=== PATIENT | female | born 1975 | race Caucasian/White ===

== ENCOUNTER 2022-12-03 02:12 | Emergency (ER) | payer OTHER ==
[~2022-12-03] VITALS: Ht 160 cm; Wt 90.0 kg
--- NOTE | 2022-12-04 21:43 | EKG ---
[facility] [address] [facility] [address] [place], [place] [address] Signed Unusual P axis, possible ectopic atrial tachycardia Low voltage QRS Septal infarct , age undetermined Abnormal ECG No previous ECGs available Confirmed by KAM MCCALL MD ([id number]) on 12/04/2022 9:43:08 PM Electronically Signed By: KAM MCCALL MD 12/04/222142 PATIENT NAME: MILLER DAVIS Electrocardiogram DATE OF : 73 PHYSICIAN: KAM MCCALL MD REPORT #: [id number] REPORT IS CONFIDENTIAL AND NOT TO BE RELEASED WITHOUT AUTHORIZATION
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
== END 2022-12-03 06:00 | disposition short-term general hospital (02) ==
LOC: ED 02:12 → EDBD 02:13 → ED 06:00
DX: S27.1XXA Traumatic hemothorax, initial encounter (principal); S22.5XXA Flail chest, initial encounter for closed fracture; S27.0XXA Traumatic pneumothorax, initial encounter; S22.069A Unspecified fracture of T7-T8 vertebra, initial encounter for closed fracture; S32.2XXA Fracture of coccyx, initial encounter for closed fracture; S32.82XA Multiple fractures of pelvis without disruption of pelvic ring, initial encounter for closed fracture; V49.9XXA Car occupant (driver) (passenger) injured in unspecified traffic accident, initial encounter; Z20.822 Contact with and (suspected) exposure to COVID-19; Y92.410 Unspecified street and highway as the place of occurrence of the external cause; Z23 Encounter for immunization
CPT/HCPCS: 31500; 32551; 36415; 36430; 36556; 36600; 70450; 71045; 71260; 72125; 74177; 80053; 82803; 83605; 84702; 85025; 86850; 86900; 86901; 86922; 87502; 90471; 90715; 93005; 93010; 94002; 94799; 99285-25; C9803; G0480; J0171; J0461; J2250; J7070; P9016; U0003

== ENCOUNTER 2023-01-20 14:32 | Inpatient (IN) | payer OTHER ==
[~2023-01-20] VITALS: Ht 160 cm; Wt 74.5 kg
--- NOTE | 2023-01-20 17:57 | NUR ---
CONTACTED ER REGARDING PCN ALLERGY AND ZOSYN ORDER. WISHES PATIENT TO HAVE ZOSYN ANYWAY.
[2023-01-20 18:00] VITALS: BP 111/67
--- NOTE | 2023-01-20 19:30 | NUR ---
REPORT RECEIVED FROM BELLE Green RN. PT LAYING IN BED AND RESPONDS WHEN ADDRESSED. PT REQUESTING BROTH. ELIZA MIGUEL BRINGS PT BROTH. PT DENIES ANY OTHER NEEDS AT THIS TIME. CALL LIGHT IN REACH.
--- NOTE | 2023-01-20 19:45 | NUR ---
CALL LIGHT ANSWERED. PATIENT WANTING PILLOW ON HER LEFT SIDE. ITS DONE. CHICKEN BROTH PROVIDED PER PATIENT.
[2023-01-20 20:28] VITALS: BP 109/54
--- NOTE | 2023-01-20 20:39 | NUR ---
IN TO ADMINISTER MEDICATIONS, SEE MAR. PT REPORTING PAIN 6/10 IN BUTTOCKS. PRN PAIN MEDICATION ADMINISTERED, SEE MAR. VITALS AND I&Os COMPLETE. ASSESSMENT COMPLETE. LUNG SOUNDS CLEAR. BOWEL TONES ACTIVE. RIGHT PEDAL PULSE FAINT. LEFT PEDAL PULSE STRONG. COOL RAG PROVIDED FOR PT COMFORT. PT DENIES ANY OTHER NEEDS AT THIS TIME. CALL LIGHT IN REACH.
--- NOTE | 2023-01-20 20:52 | NUR ---
ENTERED VS FROM ADMISSION.
--- NOTE | 2023-01-20 21:50 | NUR ---
pt repostioned. tolerated well. bedside fan provided. no other needs. call light in reach.
--- NOTE | 2023-01-20 22:35 | NUR ---
IN TO ADMINISTER MEDICATIONS, SEE MAR. PT TAKES PO MEDICATIONS WITH NO ISSUES. PT REPORTING PAIN 3/10 IN BUTTOCKS. PT DENIES ANY OTHER NEEDS AT THIS TIME. CALL LIGHT IN REACH.
--- NOTE | 2023-01-20 23:58 | NUR ---
IN WITH LAUREN CRUZ AND ELIZA MIGUEL TO PLACE DRESSING. PIN CARE PROVIDED. WOUND DRAINAGE SANGUINOUS, PURULENT, AND ODOR NOTED. WOUND ON R AND L BUTTOCKS CLEANSED WITH WOUND CLEANSER. PAT DRY. GAUZE SOAKED IN NS APPLIED TO WOUNDS. COVERED WITH ABD PAD. SECURED WITH PAPER TAPE. PT TOLERATED DRESSING WELL. DRESSING TO L HIP REMOVED AND NEW DRESSING PLACED. ALLEVYN PLACED TO L HIP. PILLOW PLACED UNDER PTs RIGHT BUTTOCK PER PT REQUEST. WATER REMOVED FROM ROOM PT IS NOW NPO. PT DENIES ANY OTHER NEEDS AT THIS TIME. CALL LIGHT IN REACH.
[2023-01-21] VITALS (8 sets, daily range): BP systolic 93–107; BP diastolic 55–62
--- NOTE | 2023-01-21 01:58 | NUR ---
IN TO ROUND ON PT. PT RESTING IN BED WITH EYES CLOSED. RR EVEN AND UNLABORED. VITALS AND I&Os COMPLETE.
--- NOTE | 2023-01-21 05:48 | NUR ---
IN WITH LAUREN CRUZ AND ELIZA MIGUEL TO ASSIST PT WITH PRE-SURGICAL WIPEDOWN. WIPE DOWN COMPLETE. NEW GOWN AND SHEETS PROVIDED. NEW SCDs IN PLACE. VITALS COMPLETE. PT REPORTING PAIN 4/10 IN BUTTOCKS. SCHEDULED TYLENOL ADMINISTERED WITH SIP OF WATER, SEE MAR. SMEAR BM NOTED, SHAYNA CARE PROVIDED. NEW PUREWICK PLACED. ASSESSMENT COMPLETE. LUNG SOUNDS CLEAR. BOWEL TONES ACTIVE. DRESSINGS TO BUTTOCKS IN PLACE. MEDICATIONS ADMINISTERED, SEE MAR. PT DENIES ANY OTHER NEEDS AT THIS TIME. CALL LIGHT IN REACH.
--- NOTE | 2023-01-21 07:20 | NUR ---
RECIEVED SHIFT REPORT. PT AWAKE IN BED, DENIES FURTHER NEEDS. CALL LIGHT IN REACH. ASSESSED PIN SITES WITH NOC LAUREN, ROSSY.
--- NOTE | 2023-01-21 10:00 | NUR ---
MORNING ASSESSMENT COMPLETE. PAIN 4/10, TOLERABLE AT THIS TIME. PT STATES CONCERN WITH "SCABS" PRESENT NEAR EXT. FIXATOR SITES THAT WERE NOT NOTICED YESTERDAY. THIS RN EXPLAINED TO PT HER CONCERNS WILL BE MENTIONED TO SURGEON AND PASSED ONTO SURGERY NURSE. 4X4 WITH NS PLACED NEAR SITES. LAUREN CAMPBELL IN ROOM TO ASSESS SITES. NO REDDNESS OR WARMTH NOTED AT SITES. PT DENIES FURTHER NEEDS. CALL LIGHT IN REACH.
--- NOTE | 2023-01-21 10:15 | NUR ---
PT TAKEN TO SURGERY AT THIS TIME.
--- NOTE | 2023-01-21 12:42 | NUR ---
01/21/23 1242 Susanne Connor 1234- PT ARRIVES TO PACU NONAROUSABLE TO STIMULI. PT TRYING TO COUGH. PT DOES NOT FOLLOW COMMANDS, IS NOT OPENING HER EYES. OPA IN PLACE AND LEFT IN PLACE AT THIS TIME. RESP RAPID AND SHALLOW. OXYGEN SAT 100% ON 6L VIA MASK. WOUND VAC SUCTIONING.
--- NOTE | 2023-01-21 13:15 | NUR ---
RECIEVED FROM SURGERY. PT DROUSY, BUT EASY TO AROUSE. RECIEVED BEDSIDE REPORT FROM LAUREN GUNTER. VSS. ASSESSED SURGICAL SITE, WOUND VAC INTACT. SKIN BLANCHABLE. ROTATED PT TO LEFT SIDE. EXPLAINED TO PT SURGEON HAS ORDER TO TURN PT Q 2HRS, PT COMPLIANT. CALL LIGHT IN REACH.
--- NOTE | 2023-01-21 13:30 | NUR ---
Attempted to see pt, she is in surgery.
--- NOTE | 2023-01-21 14:15 | NUR ---
POST OP ASSESSMENT COMPLETE. NO NEW CHANGES. VSS. WOUND VAC INTACT, SET AT 120. ABX ADMINISTERING AT THIS TIME. UNABLE TO RATE PAIN DUE TO "STILL WAKING UP". SCHEDULED PRN PAIN MEDICATION ADMINISTERED (PER EMAR). CALL LIGHT IN REACH.
--- NOTE | 2023-01-21 15:34 | NUR ---
POST OP ASSESSMENT COMPLETE. NO NEW CHANGES. PT RATED 5/10 PAIN. ROTATED TO RIGHT SIDE W/O DIFFICULTY. WOUND VAC INTACT. SKIN BLANCHABLE. VSS. CALL LIGHT IN REACH.
--- NOTE | 2023-01-21 15:41 | NUR ---
PRN PAIN MEDICATION ADMINISTERED AT THIS TIME (PER EMAR). PT ABLE TO URINATE, VIA PURWICK. CALL LIGHT IN REACH. DENIES FURTHER NEEDS AT THIS TIME
[2023-01-21] MEDS ORDERED: VITAMIN D325 MCG PO (16:31)
[2023-01-21] MEDS ORDERED: MULTI VITAMIN1 EACH PO (16:31)
--- NOTE | 2023-01-21 16:52 | NUR ---
Spoke with Dr. Smyth. He states pt will need assist with enrollment at the [facility], wound vac, air mattress, placement to a SNF if possible. Will follow up with pt tomorrow. Updated I left the paperwork at the dictation station for the home wound vac. Will send to [facility] when completed for auth.
--- NOTE | 2023-01-21 17:30 | NUR ---
post op assessment complete. pain is tolerable at this time. no new changes with surgical site. vss. pt able to eat dinner w/o difficulty. rotated pt to the left side. purwick changed. denies further needs. call light in reach
--- NOTE | 2023-01-21 19:00 | NUR ---
REPORT RECEIVED FROM LAUREN MALDONADO. PT LAYING IN BED RR EVEN AND UNLABORED. PT RESPONDS WHEN ADDRESSED. PT DENIES ANY NEEDS AT THIS TIME. CALL LIGHT IN REACH.
--- NOTE | 2023-01-21 19:23 | NUR ---
PT. CALLED DURING CHARGE REPORT. REQUESTED ASSISTANCE WITH REPOSITIONAL COMFORT. THIS WAS PROVIDED. CALL LIGHT LEFT WITHIN REACH NO OTHER NEEDS AT THIS TIME.
--- NOTE | 2023-01-21 19:58 | NUR ---
IN TO ANSWER CALL LIGHT. PT REPORTING PAIN ON RIGHT BUTTOCK SIDE. PT REQUESTING PILLOW BE REMOVED AND PLACED UNDER LEFT SIDE. PILLOW REMOVED AND PLACED UNDER LEFT SIDE. PT REPORTS PAIN IS BETTER. PT REQUESTING CRACKERS. CRACKERS PROVIDED. PT DENIES ANY OTHER NEEDS AT THIS TIME. CALL LIGHT IN REACH.
--- NOTE | 2023-01-21 20:44 | NUR ---
Provided Pt with warm blankets and fresh ice water. Left Pt with call light in reach. No other requests from Pt.
--- NOTE | 2023-01-21 21:31 | NUR ---
IN TO ADMINISTER MEIDICATION, SEE MAR. PT TAKES PO MEDICATION WITH NO ISSUES. PT REPORTING PAIN 4/10 IN BUTTOCKS PT STATES. "MORE SO IN MY RIGHT THAN MY LEFT." SCHEDULED TYLENOL ADMINISTERED, SEE MAR. ASSESSMENT COMPLETE. LUNG SOUNDS CLEAR. BOWEL TONES ACTIVE. PT REPORTS SOME TENDERNESS WITH ABD PALPATION ON RLQ. WOUND VAC IN PLACE ON SACRAL AREA DRESSING C/D/I. NO LEAKS NOTED WITH WOUND VAC. PILLOW REMOVED FROM PTs LEFT SIDE. PT REPOSITIONED IN BED AND PILLOW PLACED UNDER PTs RIGHT SIDE. IV INFUSING WNL. PT DENIES ANY OTHER NEEDS AT THIS TIME. CALL LIGHT IN REACH.
--- NOTE | 2023-01-21 22:12 | NUR ---
IN TO ADMINISTER MEDIATION. PT RESTING IN BED AND RESPONDS WHEN ADDRESSED. IV ABX STARTED, SEE MAR. IV INFUSING WNL. PT DENIES ANY OTHER NEEDS AT THIS TIME. CALL LIGHT IN REACH.
--- NOTE | 2023-01-22 00:25 | NUR ---
IN ROOM WITH PRIMARY RN TO REPOSITION pt. pt ANGRY WITH BEING AWOKEN AND YELLS, "OH FUCK, OH FUCK, OH FUCK". pt HAD PILLOW UNDER ONLY RIGHT SIDE UPON ENTERING ROOM. PILLOW FROM RIGHT SIDE REMOVED TO PLACE PILLOW UNDER LEFT SIDE. pt STATES, "I NEED IT ON THAT SIDE". pt REFERRING TO RIGHT SIDE. pt EDUCATED THAT DR WHITE ORDERED Q2H TURNING/POSITION CHANGE AND THAT PILLOWS NEED TO BE CHANGED TO PROMOTE HEALING FROM WOUND VAC. BILATERAL HIPS NOW FLOATED. pt INTERUPTS THIS RN AND STATES LOUDLY WITH BLANKET COVERING HER FACE, "I KNOW WHAT YOU GOTTA DO, JUST DO IT. RUDE AWAKENING". pt LEFT ALONE WITH CALL LIGHT AND PERSONAL BELONGINGS IN PLACE.
--- NOTE | 2023-01-22 02:27 | NUR ---
IV PUMP ALARMING. FLUIDS COMPLETE. THIS RN TO GET NEW BAG OF FLUIDS PER ORDER FOR CONTINUOUS FLUIDS.
[2023-01-22 02:35] VITALS: BP 112/61
--- NOTE | 2023-01-22 02:35 | NUR ---
IN TO OBTAIN VITALS. PT RESTING IN BED WITH EYES CLOSED. PT AWAKENS WHEN THIS RN IS LOGGING INTO COMPUTER. PT STATES "I HAVEN'T SLEPT SINCE YOU GUYS LEFT THE LAST TIME. JUST DO WHAT YOU GOTTA DO." VITALS COMPLETE. PILLOW UNDER RIGHT SIDE REMOVED. PUREWICK CHANGED AT THIS TIME. PT DENIES ANY OTHER NEEDS AT THIS TIME. CALL LIGHT IN REACH.
--- NOTE | 2023-01-22 03:05 | NUR ---
IN TO ANSWER CALL LIGHT. PT REPORTS "THE THING GOT MOST OF THE PEE, BUT NOT ALL OF IT. MY SHEETS ARE WET, I NEED NEW ONES." LISANDRA RN IN TO ASSIST WITH LINEN CHANGE. SHAYNA CARE PROVIDED. WOUND VAC IN PLACE C/D/I. NO LEAKS NOTED. MARCO PAD PLACED UNDER PT. PT REQUESTING PILLOWS PLACED UNDER BILATERAL HIPS. PILLOWS PLACED UNDER BILATERAL HIPS. WATER PROVIDED. I&Os COMPLETE. PT REPORTING PAIN 5/10 IN SACRUM. PRN PAIN MEDICATION ADMINISTERED, SEE MAR. PT DENIES ANY OTHER NEEDS AT THIS TIME. PT PLEASANT AND APOLOGETIC AND STATES "I AM SORRY FOR MY BITCHINESS, I KNOW YOU GUYS ARE DOING YOUR JOB." LIGHTS IN ROOM TURNED OFF FOR COMFORT.
--- NOTE | 2023-01-22 05:42 | NUR ---
IN TO OBTAIN VITALS AND ADMINISTER MEDICATION, SEE MAR. PT RESTING IN BED WITH EYES CLOSED. RR EVEN AND UNLABORED. PT AWAKENS WHEN ADDRESSED. VITALS AND I&Os COMPLETE. PILLOW UNDER LEFT BUTTOCKS REMOVED. PILLOW UNDER RIGHT BUTTOCKS REMAINS IN PLACE. INFORMED PT I HAVE SCHEDULED TYLENOL AND HEPARIN. PT STATES "I'LL HOLD OFF FOR NOW." EDUCATED PT ON SCHEDULED TYLENOL AND MADE PLAN TO CHECK BACK ON TYLENOL. PT ALSO WANTING TO WAIT ON SCHEDULED HEPARIN AT THIS TIME. PT DENIES ANY OTHER NEEDS AT THIS TIME. CALL LIGHT IN REACH.
[2023-01-22 05:43] VITALS: BP 115/70
--- NOTE | 2023-01-22 06:28 | NUR ---
IN TO ROUND ON PT. PT LAYING IN BED ON CELL PHONE. PT AGREEABLE TO TAKE SCHEDULED TYLENOL AND HEPARIN AT THIS TIME. MEDICATIONS ADMINISTERED, SEE MAR. PT TAKES PO MEDICATIONS WITH NO ISSUES. PT REPORTING PAIN 3/10 IN SACRUM. PT REQUESTING BLINDS OPEN AND LIGHT ON. BLINDS OPEN AND LIGHT ON. OFFERED PT WATER, PT DENIES. PT DENIES ANY OTHER NEEDS AT THIS TIME. CALL LIGHT IN REACH.
--- NOTE | 2023-01-22 07:30 | NUR ---
Spoke with Linnette. She states she has been having difficulty enrolling with the [facility] as she cannot find her certificate. She does not have PCP. Pt pt has an open fixation device in place in front, and is able to sleep only her back. She has significant decubs which were debrided yesterday. Pt now has a wound vac in place. Pt is non wt bearing and has toe touch for 1 step transfer to commode. Per discussion with Dr. Smyth last night, he would like this pt placed to a SNF on [place]. During our discussion, pt states, "[place] attempted placement to multiple SNF and all declined." Pt states her mother is coming to stay with her and she has two daughters. They could assist her, we discussed it would be better at a SNF where her wounds can be monitored. Pt has no steps into her home, wc, walker, commode, and ramp. She also has food stamps. I will find a pcp for pt to establish care, check for SNF placement, check with the [facility] is pt can be enrolled in the near future, request auth for a wound vac in case the pt discharges to home.
--- NOTE | 2023-01-22 08:00 | NUR ---
RECIEVED BEDSIDE REPORT FROM LAUREN BLAIR. DURING ROUNDS WE CHANGED HER PUREWICK AND CHUX AND DID HER 0700 TURN. CLOCKS UPDATED. PT DENIED NEEDS AT THIS TIME. WILL BUNDLE CARE WITH FUND ACCOUNTANT TO LIMIT DISRUPTIONS TO PT.
[2023-01-22] MEDS ORDERED: TYLENOL325 MG PO (09:00)
[2023-01-22] MEDS ORDERED: IBU800 MG PO (09:00)
--- NOTE | 2023-01-22 09:00 | NUR ---
MED REC COMPLETE
--- NOTE | 2023-01-22 09:36 | NUR ---
update to dr padgett and round in room with her. pt eyes closed, calm and resp rate 40's - when pt awakens hr 160's, cont vapotherm 14L 30%, see new orders. mom and dad at side to comfort pt.
[2023-01-22 09:41] VITALS: BP 114/71
--- NOTE | 2023-01-22 10:20 | NUR ---
Called and left a message with [facility] asking if they can assist this pt. Attempted to call [facility] to see if they can assist this pt, until she is enrolled. No answer. Attempted to call [facility] to get a pcp to establish care and they are closed today. Faxed pt's chart to [facility] to Mary Kay Dutton to request auth for wound vac for OP.
--- NOTE | 2023-01-22 10:41 | NUR ---
PT IS SITTING UP AND DOING AM CARES WITH SET UP ASSISTANCE FROM CASUALTY CLAIMS SUPERVISOR. REPOSITIONED PER REQUEST.
--- NOTE | 2023-01-22 11:00 | NUR ---
Received a call from Lucila Wilson at [facility]. Pt is on their list to be evaluated as they were contacted by [facility]. She will speak with Lauren Benson and schedule an eval while the pt is in the hospital. Per Lucila, she does not feel this pt will have problems qualifing for LT medicaid. Chart to Dario Stringer, Jessika in [place], and [facility]. [facility] declined do to the open fixation device. Jessika and T will review.
--- NOTE | 2023-01-22 13:27 | NUR ---
Pt updated, pt tearful, we discussed depression and pt feels she is depressed. She adamantly refuses to ever take antidepressants. She states she is bored and will have to keep her XFix in place for 8 weeks. I gave her a coloring book, color pencils and a word search.
--- NOTE | 2023-01-22 14:42 | NUR ---
WHILE MOVING PT, STAFF SLIGHTLY TOUCHED HER EXTERNAL FIXATION DEVICE. PT WAS IN SEVERE PAIN. SHE NO LONGER WAS ACCEPTING OF ANY INTERVENTIONS. SHE REFUSED HEPRIN BECAUSE THIS RN WOULD NOT INJECT IN HER ARM.
--- NOTE | 2023-01-22 17:00 | NUR ---
This RN to bedside to introduce myself. Patient reports her pelvic pain has started to improve with recent pain medical records coder. Patient repositioned with two RN assist. Patient directed staff on how to assist with respositioning. Pillow placed under left buttock. Patient denies needs at this time. Call light within reach of patient.
[2023-01-22 18:46] VITALS: BP 113/65
--- NOTE | 2023-01-22 19:16 | NUR ---
BEDSIDE REPORT RECEIVED FROM MALIA RN, PT AWAKE AND ALERT, PLAN OF CARE DISCUSSED WITH PT, IV PATENT, FAMILY INTO VISIT. WOUND VAC NOTED TO BE DRAINING BROWN COLORED FLUID, SCDS ON, SIDE RAILS UP X 4.
--- NOTE | 2023-01-22 20:20 | NUR ---
DR WHITE INTO VISIT PATIENT, DISCUSSING WOUND DEBRIDMENT AND WOUND VAC IN PLACE, MD NOTED COLOR OF DRAINAGE.
[2023-01-22 20:33] VITALS: BP 116/68
--- NOTE | 2023-01-22 20:33 | NUR ---
PT AWAKE AND ALERT, VS STABLE, ASSESSMENT DONE, NEW PURE WICK PLACED ON PT, DISCUSSED WITH PT THAT NORCO CAN BE GIVEN AT APPROX 2200, PT IN AGREEMENT WITH THIS. IV SITE PATENT RIGHT FA, 20G, IVF PER ORDER.
--- NOTE | 2023-01-22 21:00 | NUR ---
PT REMAINS AWAKE, PT TURNED TO RIGHT SIDE WITH 2 PERSON ASSIST, SCDS OFF PER PT REQUEST FOR 2 HOURS. KCL DOSE GIVEN PER ORDER, #1 OF 3, PT REPORTS SHE RECENTLY HAD A SNACK. PT RESTING WITHOUT REQUESTS.
--- NOTE | 2023-01-22 21:00 | NUR ---
DR WHITE IN ROOM AND DISCUSSING POC WITH pt, PRIMARY RN ALSO IN ROOM. CLARIFIED AMBULATION RESTRICTION/ORDERS, VERBAL ORDER READ BACK OKAY TO BE WT BEARING TO RIGHT SIDE, STAND PIVOT TO BSC WHEN NEEDED.
--- NOTE | 2023-01-22 23:00 | NUR ---
PT REPORTS SHE LEAKED AROUND PURE WICK, GOWN AND UNDERPAD DUMP, PT TURNED FOR CHUX AND PAD CHANGE WITH 2 PERSON ASSIST, NEW PURE WICK INSERTED, PT REPOSITIONED WITH PILLOWS.
--- NOTE | 2023-01-23 00:22 | NUR ---
PT AWAKEN FOR ORDERED KCL, PT RESTING WITHOUT OTHER REQUESTS AT THIS TIME. IV PATENT.
--- NOTE | 2023-01-23 00:58 | NUR ---
pt repositioned in bed, pillow removed from under left side but remains under right side. pt angry when asked what pillow she would prefer removed, pt states, "i don't care, i'm trying to sleep. oh joshuak, oh dutch". pt left ressting in bed, no additional needs or concerns verbalized. call light in reach.
--- NOTE | 2023-01-23 03:10 | NUR ---
RN CALLED TO ROOM TO REPOSITION, PT STATES RIGHT SIDE UNCOMFORTABLE, DESIRES TO HAVE BILATERAL HIPS FLOATED, DONE PER PT REQUEST, LAST DOSE OF KCL GIVEN, NEW BAG OF LR HUNG AND CONTINUES TO RUN WELL AT 85ML/HR. PT RESTING WITH EYES CLOSED, RESP REG, SCDS IN PLACE, WOUND VAC SX AT 120, CONTINUES BROWN FLUID. FRESH WATER GIVEN.
--- NOTE | 2023-01-23 04:10 | NUR ---
LAB NOTED TO HAVE COMPLETED AM BLOOD DRAW.
--- NOTE | 2023-01-23 05:20 | NUR ---
PT ASLEEP, LEFT SIDED PILLOW GENTLY REMOVED, PT IN SLIGHT LEFT TILT, RESP EVEN REG.
[2023-01-23 06:18] VITALS: BP 123/79
--- NOTE | 2023-01-23 06:18 | NUR ---
PT AWAKEN FOR VS AND ROUTINE MED, PT REQUESTING 1 NORCO AND DECLINES ADDITIONAL TYLENOL, MED PER ORDER, PT IRRITABLE, UPSET ABOUT BEING INTERUPTED SO FREQUENTLY, PT REPOSITIONED PER REQUEST, WOUND VAC CONTINUES TO SX, DRAINING BROWN FLUID, PURE WICK OUT 275ML ESVIN URINE, PT C/O HEARTBURN FROM EARILIER KCL MEDICATION, DECLINES SNACK TO HELP EASE HEARTBURN, PT COVERS HER CHEST WHEN ATTEMPTED TO DO ASSESSMENT, LIMITED ASSESSMENT COMPLETED. PT RESTING WITH EYES CLOSED.
[2023-01-23 09:57] VITALS: BP 110/71
--- NOTE | 2023-01-23 10:22 | NUR ---
In for morning assessment and repsotioning. External fixators cleansed per provider order with hydrogen peroxide then betadine. Patient tolerated cleaning well. IV site patent. Wound vac intact, suction cont @ 120mmgh. Patient declined a bed bath at this time as she states her family will be helping her with that. Encouraged patient to call staff for any needs. Call light within reach of patient.
--- NOTE | 2023-01-23 12:08 | NUR ---
One tab norco 5/325 mg po admin for reports of 6/10 coccyx/wound site pain. Patient has a visitor at bedside. No further needs at this time.
--- NOTE | 2023-01-23 13:03 | NUR ---
Patient sitting up in her bed visiting with family. No needs at this time. Call light within reach.
[2023-01-23 13:55] VITALS: BP 122/75
--- NOTE | 2023-01-23 14:35 | NUR ---
GAIL RN AND THIS RN TRANSFERED PT FROM BED TO BSC. USING SMALL, GENTLE MOVEMENTS WITH ONE RN AT HER LEGS AND ONE AT HER SHOULDERS, SHE WAS ABLE TO ASSIST WITH TRASFERING. UPON SITTING AT EDGE OF BED, SHE USED A FWW TO STAND AND PIVOT TO BSC. WASHCLOTH PLACED BEHIND HER BACK FOR CUSHION. SHE WAS ABLE TO VOID WELL AND HAD A SMALL BM. UPON FINISHING, ELIZA COLE AND THIS RN TRANSFERED HER TO BED, USING THE SAME SMALL MOVEMENTS, SHE WAS ABLE TO TRANSFER BACK TO BED WITH 2 PERSON ASSIST. GREEN SHEET WAS CHANGED, CHUX WERE CHANGED.
--- NOTE | 2023-01-23 14:56 | NUR ---
One tab [place] 5/325mg po admin at this time. Family at bedside assisting with cares. No current needs, personal supplies and call light within reach.
[2023-01-23 17:55] VITALS: BP 127/83
--- NOTE | 2023-01-23 17:58 | NUR ---
PATIENT IN BED, WATCHING TELEVISION. PT ROTATED OFF LEFT SIDE. VITALS AND I/O'S COMPLETED. PT HAS NO OTHER REQUESTS AT THIS TIME, CALL LIGHT WITHIN REACH.
--- NOTE | 2023-01-23 19:08 | NUR ---
SHIFT REPORT RECEIVED FROM MALIA RN, PT RESTING.
--- NOTE | 2023-01-23 19:26 | NUR ---
PT AWAKE AND ALERT, REQUESTING SANDWICH AND CHIPS, PT STATES SHE DIDN'T CARE FOR EARILIER DINNER, MEAL GIVEN, PLAN OF CARE DISCUSSED, PT DESIRES TO BE OFFERED ONE NORCO APPROX EVERY 3 HOURS AND HOLD TYLENOL. FRESH WATER GIVEN.
[2023-01-23 20:30] VITALS: BP 132/83
--- NOTE | 2023-01-23 20:30 | NUR ---
PT AWAKE, VS AND ASSESSMENT DONE, PT MEDICATED WITH ONE NORCO PER ORDER PER HER REQUESTT, RT MEDS GIVEN, SL FLUSHES WELL IN RIGHT FOREARM, PURE WICK IN PLACE AND COLLECTING URINE WELL, SCDS IN PLACE, WOUND VAC AT 120 SX, DRAINING LIGHT BROWN FLUID, PT REPOSITIONED WITH BILATERAL HIP FLOATING PER REQUEST.
--- NOTE | 2023-01-23 23:25 | NUR ---
PT AWAKEN FOR NORCO PER EARLY REQUEST, PT IRRITABLE, RT MEDS GIVEN PER ORDER, PT REPOSITIONED, DENIES OTHER NEEDS, WOUND VAC CONTS AT 120 SX, PT WITHOUT OTHER REQUESTS.
--- NOTE | 2023-01-24 01:30 | NUR ---
PT ASLEEP, RESP REG, LEFT UNDISTURBED.
--- NOTE | 2023-01-24 03:35 | NUR ---
PT SLEEPING, AWAKEN FOR NORCO PER EARILIER REQUEST, PT UPSET, STATING SHE IS IN A LOT OF PAIN, REPOSITIONED TO LEFT SIDE, PT IRRITABLE, COVERS HEAD WITH BLANKET, PURE WICK AND WOUND VAC IN PLACE. PT WITHOUT OTHER REQUESTS.
[2023-01-24 06:32] VITALS: BP 130/76
--- NOTE | 2023-01-24 06:34 | NUR ---
PT IS IRRITATED FOR BEING WOKE UP FOR VITALS, CARE. CUSSES, THROWS COVERS OVER HER FACE WHEN LIGHT IS TURNED ON, AND VITALS ARE STARTED.
--- NOTE | 2023-01-24 06:35 | NUR ---
PT AWAKEN FOR VS AND RT MEDS. PT DESIRES A NORCO FOR PAIN 3/10, GIVEN PER ORDER, SCDS REMOVED PER PT REQUEST DUE TO SWEATY HOT LEGS, SHAYNA CARE DONE FOR LEAKAGE OF PURE WICK, NEW DRAW SHEET,CHUX AND GOWN GIVEN, WOUND VAC AND DRESSINGS TO COCCYX INTACT, NEW PURE WICK APPLIED AND TO SX, PT APPRECIATIVE OF ASSISTANCE, DESIRES TO STAY ON BACK AT THIS TIME, RESTING.
--- NOTE | 2023-01-24 07:32 | NUR ---
ASSUMING CARE OF PT. RECEIVED REPORT FROM JANI AGUILAR. PT RESTING IN BED WITH EYES CLOSED, RESPIRATIONS EVEN AND UNLABORED. PT HAS CALL LIGHT WITHIN REACH.
--- NOTE | 2023-01-24 08:34 | NUR ---
MORNING MEDICATION PROVIDED AND PT PLACED ON LEFT SIDE WITH PILLOW UNDER RIGHT BUTTOX. PT TOLERATED WELL. BREAKFAST GIVEN TO PT. PT DENIES NEEDS AT THIS TIME.
--- NOTE | 2023-01-24 09:45 | NUR ---
PT FINISHED BREAKFAST. WARM WASHCLOTH PROVIDED WELL ORAL CARE FOR AM. PT DENIES NEEDS AT THIS TIME.
[2023-01-24 09:50] VITALS: BP 131/85
--- NOTE | 2023-01-24 10:40 | NUR ---
PT REPOSITIONED ONTO RIGHT SIDE. EXTERNAL FIXATOR DEVICE CLEANED WITH HYDROGEN PEROXIDE AND BETADINE. PT TOLERATED WELL. PT DENIES FURTHER NEEDS AT THIS TIME.
--- NOTE | 2023-01-24 12:07 | NUR ---
IN ROOM TO CHECK ON PT. PER PT REGUEST, PT REPOSTIONED ONTO LEFT SIDE. PT DENIES FURTHER NEEDS AT THIS TIME. CALL LIGHT WITHIN REACH.
[2023-01-24 13:54] VITALS: BP 135/76
--- NOTE | 2023-01-24 13:59 | NUR ---
PATIENT IN BED, WATCHING TELEVISION. VITALS AND I/O'S COMPLETED. PATIENT ROTATED OFF THE LEFT SIDE. PT HAS NO OTHER REQUESTS AT THIS TIME. PUREWICK INTACT. CALL LIGHT WITHIN REACH.
--- NOTE | 2023-01-24 14:21 | NUR ---
PT GIVEN PAIN MEDICATION PER REQUEST. PT DENIES FURTHER NEEDS AT THIS TIME. PT STATES HER DAUGHTERS HAD GIVEN HER A BEDBATH YESTERDAY AND HER LINENS ON HER BED WERE CHANGED THIS AM. CALL LIGHT WITHIN REACH AND NO FURTHER NEEDS.
--- NOTE | 2023-01-24 15:06 | NUR ---
PT SIGNED CONSENT FOR SURGICAL PROCEDURE TOMORROW. PT DENIES NEEDS AT THIS TIME, TALKING ON PHONE WITH FAMILY. CALL LIGHT WITHIN REACH.
--- NOTE | 2023-01-24 16:40 | NUR ---
PT REPOSITIONED IN BED ONTO LEFT SIDE. PT DENIES NEEDS AT THIS TIME. CALL LIGHT WITHIN REACH.
[2023-01-24 18:06] VITALS: BP 118/84
--- NOTE | 2023-01-24 18:08 | NUR ---
PATIENT IN BED AFTER USING BEDSIDE COMMODE. VITALS AND I/O'S COMPLETED. PATIENT HAS NO REQUESTS AT THIS TIME. CALL LIGHT WITHIN REACH.
--- NOTE | 2023-01-24 19:15 | NUR ---
SHIFT REPORT RECEIVED FROM YUKO AGUILAR, PT RESTING QUIETLY WITHOUT COMPLAINTS.
[2023-01-24 20:12] VITALS: BP 128/79
--- NOTE | 2023-01-24 20:12 | NUR ---
RN TO ROOM, PT AWAKE, RT MEDS GIVEN AND MEDICATED FOR PAIN CONTROL PER REQUEST WITH ONE NORCO. PT STATES SHE WOULD LIKE TO TAKE THIS APPROX EVERY 3-4 HOURS TONIGHT. VS AND ASSESSMENT DONE, PLAN OF CARE DISCUSSED, CHARGE NURSE TO ROOM TO ASSIST WITH CHANGE OF CHUX AND REPOSITION. WOUND VAC AND DRESSING TO COCCYX IN PLACE, WOUND VAC AT 120 SX. BILL RN DISCUSSED VERIOUS OPTIONS WITH SPECIALITY BED, PT CHOSE TO HAVE THE [employer] C200 BED PLACED ON CONTINUOUS ALTERNATING PRESSURE AND PULSATION FEATURE ON HIGH-Q10 MINUTES SHAYNA CARE DONE AND PURE WICK READJUSTED, SCDS REPLACED ON PT. PILLOW PLACED UNDER RIGHT HIP.
--- NOTE | 2023-01-24 21:10 | NUR ---
TC TO DR WHITE TO RECEIVE ORDERS FOR IVF AND MEDS ADMINISTRATION AFTER PT MADE NPO AT MIDNIGHT, ORDERS RECEIVED TO CONTINUE PO MEDS WITH SIP OF WATER, ALSO TO START LR AT 85ML/HR, ORDERS ENTERED.
--- NOTE | 2023-01-24 23:32 | NUR ---
PT ASLEEP, AWAKEN FOR RT MEDS AND TO BE MEDICATED WITH NORCO PER EARILIER REQUEST, SL FLUSHES WELL IN RIGHT FOREARM, IVF OF LR @ 85ML/HR STARTED IN PREP FOR NPO STATUS, PT REQUEST ALL FLUIDS BE REMOVED AT THIS TIME, DONE PER REQUESTS, PT DECLINES REPOSITIONING AT THIS TIME, WOUND VAC REMAINS TO SX, PURE WICK IN PLACE.
[2023-01-25] VITALS (7 sets, daily range): BP systolic 114–146; BP diastolic 71–82
--- NOTE | 2023-01-25 02:05 | NUR ---
PT ASLEEP, RESP EVEN AND REG, LEFT UNDISTURBED AT THIS TIME.
--- NOTE | 2023-01-25 03:45 | NUR ---
PT AWAKEN FOR RT PAIN MED WITH SIP OF WATER, VS AND ASSESSMENT DONE, WOUND VAC REMAINS ON SX @ 120, IV INFUSING WELL, SCDS IN PLACE.
--- NOTE | 2023-01-25 04:14 | NUR ---
CHECKED PT, BED ON CONTINOUS LATERAL ROTATION THERAPY, BED TURNING AUTOMATICALLY FROM SIDE TO BACK TO OTHER SIDE, TO BACK, WITH THIS ROTATION. PT WITH EYES CLOSED, RESP EVEN AND UNLABORED. TOLERATING AT THIS TIME.
--- NOTE | 2023-01-25 05:05 | NUR ---
PT APPEARS TO SLEEP, RESP REG.
--- NOTE | 2023-01-25 06:33 | NUR ---
PT AWAKEN, STATES SHE IS "SO TIRED OF EVERYTHING", NORCO GIVEN PER EARILIER REQUEST, LARGE INCONTINENCE FROM PURE WICK NOT COLLECTING, PERICARE GIVEN, NEW PURE WICK APPLIED, WOUND VAC AND DRESSING INTACT, CONTS SX AT 120, IV PATENT, MEDS GIVEN WITH SIP OF WATER.
--- NOTE | 2023-01-25 07:27 | NUR ---
RECEIVED REPORT FROM AUDIT CLERK NURSE. PATIENT CURRENLTY LAYING IN BED. WITH FAMILY AT BEDSIDE.
--- NOTE | 2023-01-25 09:23 | NUR ---
PATIENTS IV INFILTRATED. PATIENT IS A HARD IV STICK. JANI FROM [facility] IS CURRENTLY HERE NOW TO PLACE IV VIA ULTRASOUND. PATIENT GIVEN MORNING MEDICATIONS.
--- NOTE | 2023-01-25 09:44 | NUR ---
IV IS IN AND PATIENT HAS FLUIDS RUNNING AGAIN. PATIENT DENIES ANY NEEDS AT THIS TIME. CALL LIGHT WITHIN REACH. PATIENTS MOTHER IS IN ROOM WITH HER.
--- NOTE | 2023-01-25 11:00 | NUR ---
Spoke with Linnette. She again begins to cry during our conversation. She states she is so tired of her injury. She is unsure if she will go home or to a SNF. Let her know I am still working on placement. She remains willing to go to a SNF. We again discussed depression and it is very normal to become depressed after a life altering injury. Pt again stating she will never take antidepressants or herbal medications to assist with depression. She denies other needs. Asks me to change emergency contact to her mother on the white board in her room. Mom, Yumiko [phone].
--- NOTE | 2023-01-25 11:06 | NUR ---
PATIENT CURRENTLY ASLEEP IN BED. REGULAR RESPIRATIONS NOTED. PATIENT HAS BED SETTING TO ROTATE HER ON SIDES EVERY 15 MINUTES.
--- NOTE | 2023-01-25 11:08 | NUR ---
REFERRAL FOR PLACEMENT FAXED TO GAURAV AT [facility].
--- NOTE | 2023-01-25 12:18 | NUR ---
PATIENTS 4 FIXATOR PINS WERE CLEANED IWTH HYDROGEN PEROXIDE AND THEN BETADINE. PATIENTS BOTTOM PIN ON THE RIGHT SIDE DOES HAVE SOME DISCHARGE COMING OUT. PATIENT ADVISED THIS NURSE THAT WE CLEAN THEM A LOT DIFFERENT THEN THEY WERE ADVISED FROM [facility]. THE DISCHARGE IS NEW TO THE PATIENT SINCE BEING AT THE HOSPITAL. THIS NURSE WILL ADVISED ABOUT THIS WHEN I SEE HIM NEXT.
--- NOTE | 2023-01-25 13:54 | NUR ---
Spoke with GAURAV from [facility] x 3. Updated info and clarified Basic DMAP. Let him know pt will return to surgery this afternoon for wound care/wound vac dressing change and will then have further info for plan of dc. Also updated [facility] will evaluate this pt.
--- NOTE | 2023-01-25 13:56 | NUR ---
Called and left a message on Josep Benson's cell phone from [facility]. Asked if Lucila had discussed this pt with her and if they plan on evaluating this pt soon.
--- NOTE | 2023-01-25 13:57 | NUR ---
PATIENT IS READY FOR SURGERY. LR HANGING WITH EXTENSION TUBING. ELIZA MENEZES WILL BE DOING WIPE DOWN SOON. PATIENTS PRE SURGERY CHECKLIST IS DONE. PATIENT DENIED TYLENOL SHE ADVISED THIS NURSE IT MAKES HER TO CONSTIPATED.
--- NOTE | 2023-01-25 14:53 | NUR ---
SURGICAL WIPE DOWN DONE.PATIENT IS READY WHEN SURGERY COMES TO GET PATIENT.
--- NOTE | 2023-01-25 15:21 | NUR ---
PATIENT TAKEN DOWN FOR SURGERY. SURGICAL NURSE ADVISED OF THE FIXATOR PIN THAT HAS DISCHARGE COMING OUT OF IT. SHE WILL TALK TO ABOUT THIS.
--- NOTE | 2023-01-25 17:03 | NUR ---
01/25/23 1703 Catrachita Carreon [id number] PT TO PACU ORAL AIRWAY IN PLACE O2 VIA MASK, FOGGING NOTED IN MASK
--- NOTE | 2023-01-25 17:26 | NUR ---
PATIENT IS BACK ON THE MED [facility] FLOOR. PATIENT IS HOOKED BACK UP TO IV AT A RATE OF 85 OF LR. PATIENT ON RA AND STATS ARE AT 100. PAIN LEVEL 4/10. PATIENT HAS PURE WICK PLACED AND ABLE TO URINATE 250 APON ARRIVAL.
--- NOTE | 2023-01-25 19:10 | NUR ---
BEDSIDE REPORT RECEIVED FROM ISABELLA RN, PT AWAKE AND ALERT, MOTHER AT BEDSIDE, VS DONE, PT ATTEMPTING TO HAVE BM AT THISTIME
--- NOTE | 2023-01-25 19:30 | NUR ---
RN CALLED TO ROOM, VS DONE, PT HAD BM, ATTENDS CHANGED, COCCYX DRESSING AND WOUND VAC INTACT, VAC SX CONTINUES AT 120, PURE WICK IN PLACE, DRAINING ESVIN URINE, PELVIC FIXATION DEVICE WOUND SITES WITHOUT DRAINAGE, TISSUE PINK ON RIGHT HIP FIXATION SITE, PT EATING MEAL WITH HER MOTHER, NO C/O N/V. PT REMAINS ON SPECIALITY BED, PLAN OF CARE FOR TONIGHT DISCUSED, PT DESIRES NORCO APPROX EVERY [address]
--- NOTE | 2023-01-25 20:30 | NUR ---
PT HAD ANOTHER SOFT FORMED BROWN BM, ATTEMDS CHANGED AND WOUND DRESSING INTACT, WOUND SX CONTINUES. PT ATTEMPTING TO REST.
--- NOTE | 2023-01-25 20:36 | NUR ---
PT RESTING WITH EYES CLOSED, AWAKEN EASILY, VS DONE AND STABLE, MEDICATED FOR PELVIS AND COCCYX AREA PAIN 4/10 WITH 1 NORCO, IV INFUSING WELL, CONTS WITH LR AT 85ML/HR. PT ATTEMPTING TO SLEEP.
--- NOTE | 2023-01-25 21:30 | NUR ---
RT MEDS GIVEN, PT DECLINES HEPARIN AT THIS TIME, STATES SHE MAYBE UP TO TAKING IT AT APPROX 2330 WHEN NEXT NORCO IS DUE, SCDS CONT IN PLACE. PT REQUESTS TO HAVE TURN OPTION ON BED TURNED OFF DUE TO CAUSING TOO MUCH PAIN, DONE PER REQUEST BY BILL AGUILAR.
--- NOTE | 2023-01-25 23:35 | NUR ---
PT AWAKEN PER PT EARILIER REQUEST TO MEDICATE FOR PAIN CONTROL, GIVEN 1 NORCO PER ORDER, PT DECLINES HER DOSE OF HEPARIN AT THIS TIME, SCDS IN PLACE, PT RESTING WITH EYES CLOSED, NEW BAG OF LR HUNG, CONTINUES AT 85ML/HR.
[2023-01-26] VITALS (8 sets, daily range): BP systolic 109–128; BP diastolic 65–87
--- NOTE | 2023-01-26 01:35 | NUR ---
PT APPEARS TO SLEEP, RESP EVEN AND REG.
--- NOTE | 2023-01-26 02:46 | NUR ---
PT ASLEEP, AWAKEN FOR VS AND PAIN MEDICATION PER EARILIER REQUEST, PT ALERT, MEDICATED WITH 1 NORCO PO PER ORDER FOR SACRAL PAIN, SKIN WARM AND DRY, RESP EVEN AND REGULAR, WOUND VAC CONTINUES TO SX AT 120, IV PATENT AND INFUSING WELL, PT REPOSITIONED TOWARD LEFT SIDE WITH ONE PILLOW, PT WITHOUT OTHER REQUESTS, RESTING WITH EYES CLOSED.
--- NOTE | 2023-01-26 02:50 | NUR ---
PT CONTINUES ON SPECIALITY BED ON CONTINUOUS ALTERNATING PRESSURE AND PULSATION SETTING, SECOND LEVEL. SIDE RAILS UP X 2.
--- NOTE | 2023-01-26 02:52 | NUR ---
Assisted RN in repositioning patient and vitals.
--- NOTE | 2023-01-26 04:40 | NUR ---
PT ASLEEP, RESP APPEAR EVEN AND REG, WITHOUT DISTRESS.
--- NOTE | 2023-01-26 06:21 | NUR ---
PT AWAKEN FOR MEDICATION, VS DONE, PT MEDICATED WITH NORCO 1 TABLET FOR PAIN 01/04, PT INCONTINANT LARGE AMOUNT URINE EVEN WITH PURE WICK IN PLACE, PURE WICK HAD 300ML OUTPUT, PT TURNED TO CHANGE CHUX, PT VERY PAINFUL WITH TURNING, TEARFUL, PT DESIRES TO STAY ON BACK, CONTINUOUS ALTERNATING PRESSURE AND PULSATION TURNED UP TO 3RD SETTING, IV PATENT, PT DECLINES AM HEPARIN, SCDS REMAIN IN PLACE, WOUND VAC REMAINS AT 120 SX. PT RESTING WITH EYES CLOSED.
--- NOTE | 2023-01-26 07:00 | NUR ---
TC TO DR WHITE, UPDATED ON PT DECLINING HEPARIN TWICE LAST NIGHT AND ALSO ABOUT INCREASED PAIN WITH TURNING, NO NEW ORDERS RECEIVED AT THIS TIME.
--- NOTE | 2023-01-26 09:06 | NUR ---
PT RESTING IN BED. VITALS AND IS AND OS COMPLETE. PT BRIEF CHANGED PT HAD A BM. PUREWICK CHANGED. PT LEGS ELEVATED. SCDS ON. PT COMPLETED ORAL AND AM CARE. PT BREAKFAST TRAY IN FRONT OF HER. ICE WATER AND COFFEE PROVIDED. NO NEEDS. CALL LIGHT WITHIN REACH
--- NOTE | 2023-01-26 09:27 | NUR ---
ASSISTED COMPANY LABORER MICHAEL TO CHANGE PT. TOLERATED WELL BUT STATES IT IS DEFINETLY MORE PAINFUL TODAY THAN THE LAST FEW DAYS. RL PIN SITE HAS SMALL AMT PURULENT DRAINAGE. WOUND VAC REMAINS INTACT WITH GOOD DRAINAGE\SUCTION.
--- NOTE | 2023-01-26 10:00 | NUR ---
Wendy and I were able to talk with pt. Pt's mother, Norma was at the bedside. We let pt know that she has an evaluation with [facility] at 11 am tomorrow for long-term care placement. Pt was visiting and smiling with mom today. Per conversation with Josep at [facility] they will complete the eval tomorrow and notify [facility] that they will cover the cost of placement. We talked to her about making sure that she keeps her strength up, and help reposition every two hours to avoid more issues like this for the future and help with the healing process. Pt was very eager to take some indepedence in her care.Pt is competent to prop self every two hours. She was made aware that she needs to attempt this herself. Lengthy discussion with mom and pt regaurding pt concerns of her children and home. Pt is aware she will require at least 6 weeks of her halo to remain in place. Mom was tearful at times with concern for her daughter. Discussed type of transport for discharge and need to confirm with Dr. Kain REYNOSO date. Plan is upon discharge that she will leave by wheelchair van.
--- NOTE | 2023-01-26 12:24 | NUR ---
PT SITTING UP IN BED EATING. STATES PAIN IS GOOD AT A 3\10.
--- NOTE | 2023-01-26 12:32 | NUR ---
Received a message from [employer], they are requesting further documentation. Let her know I think pt is going to a SNF. I also was able to discuss with Dr. Smyth a few minutes ago and he plans dc to SNF in 1-3 days.
--- NOTE | 2023-01-26 13:45 | NUR ---
SPOKE WITH DR WHITE REGARDING LABS. PT CBC ORDERED.
--- NOTE | 2023-01-26 13:59 | NUR ---
FIXED THE BED BEEPING. ADMINISTERED PAIN MEDS PER REQUEST.
--- NOTE | 2023-01-26 14:51 | NUR ---
PT SIGNED FOR BLOOD. WILL ADMINSTER WHEN READY. DENIES FURTHER CONCERNS.
--- NOTE | 2023-01-26 16:14 | NUR ---
ASSISTED YACHT MASTER WITH GETTING PT TO BSC. DEFLATED BED AND THEN SET IT TO GENTLE ROLLING AFTER SHE GOT BACK IN BED. GIVEN SNACK. CALL LIGHT IN REACH.
--- NOTE | 2023-01-26 17:53 | NUR ---
PT EATING DINNER. BED ON ROTATE. CALL LIGHT IN REACH. DENIES PAIN MED NEEDS ATT.
--- NOTE | 2023-01-26 19:48 | NUR ---
REPORT RECEIVED FROM DAY SHIFT. PT IS UP TO THE BSC. PT VOIDED. DRAW SHEET AND CHUX CHANGED. CLEAN ATTENDS PLACED WITH PURWIK TO DRAW URINE. BED TURN FUNCTION IS TURNED ON. PT HAS BEDSIDE TABLE CLOSE AND CALL LIGHT IN HER HAND. NO OTHER NEEDS.
--- NOTE | 2023-01-26 22:26 | NUR ---
PT HAS ORDER FOR 2 UNITS PRBC. CONSENT IS SIGNED AND ON HER CHART. VS WERE DONE PRE INFUSION AT 2140 AND AGAIN AT 215 AFTER BLOOD WAS STARTED. PT IS TOLERATING THE BLOOD INFUSION WELL.
--- NOTE | 2023-01-26 22:54 | NUR ---
BLOOD IS INFUSING AT 125 ML/HR. PT HAS CPOX ON . PULSE IS STEADY AT 92 AND RESPERATIONS ARE EVEN AND UNLABORED AT 18.
[2023-01-27 00:35] VITALS: BP 121/72
--- NOTE | 2023-01-27 00:45 | NUR ---
PT'S IV INFILTRATED WITH NS FLUSH AFTER FIRST UNIT OF BLOOD. KATY JOLLEY WAS CALLED AND WAS ABLE TO PLACE A 20 ANGEL IV IN PT'S RIGHT WRIST WITH 1 ATTEMPT. PT TOLERATED THIS WELL.
[2023-01-27 01:03] VITALS: BP 120/78
--- NOTE | 2023-01-27 01:10 | NUR ---
PTHAS 20 ANGEL IV IN RIGHT WRIST. 2ND UNIT OF PRBC STARTED. PT'S VS ARE STABLE. SHE APPEARS TO BE TOLERATING THE INFUSIONS WELL.
[2023-01-27 01:18] VITALS: BP 122/69
--- NOTE | 2023-01-27 02:45 | NUR ---
PT'S IV IS PATENT. HER OXYGEN SAT IS 97 % ON ROOM AIR. HER PULSE IS IN THE MID 80'S. SHE APPEARS TO BE SLEEPING COMFORTABLY.
[2023-01-27 03:51] VITALS: BP 134/76
--- NOTE | 2023-01-27 04:00 | NUR ---
PT HAS RECEIVED THE 2 UNITS OF PRBC ORDERED. SHE APPEARED TOLERATE THE BLOOD INFUSIONS WELL. VS ARE STABLE. SHE HAS REMAINED AFEBRILE. NO ADVERSE REACTIONS NOTED. SHE WILL HAVE A CBC DRAWN THIS AM.
[2023-01-27 05:22] VITALS: BP 126/80
--- NOTE | 2023-01-27 08:00 | NUR ---
Texted GAURAV at [facility] this am and he replied they prefer to take take this pt today. They would like her there between 2 and 4 pm. I will contact Dr. Smyth to confirm he still plans on dc today. Called the van and they state they can transport this pt today at 3 pm. They then called and changed the time to [address] Smyth and asked if he plans on dc for this pt today.
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
[2023-01-27 09:25] VITALS: BP 123/77
--- NOTE | 2023-01-27 09:49 | NUR ---
REPORT RECEIVED FROM NIGHT RN AND PT CARE RESUMED. PT. IS ALERT AND ORIENTED TO ALL. C/O 6/10 PAIN ON SACRAL WOUND. ADMIN PRN MED. DISCUSSED CLEANSING PINS AFTER PAIN MEDS RELIEVE PAIN. ASSESSMENT COMPLETED AND MEDS ADMIN. PRESSURE SHIFTING MATTRESS ON AND WORKING. PT. LEFT RESTING WITH CALL LIGHT IN REACH
--- NOTE | 2023-01-27 10:05 | NUR ---
FIXATOR PINS CLEANSED WITH PEROXIDE AND BETADINE PER ORDER. PT. TOLERATED WELL. DENIES FURTHER NEEDS. CALL LIGHT IN REACH.
--- NOTE | 2023-01-27 10:30 | NUR ---
RT COLLECTED RAPID COVID 19 SWAB AT THIS TIME WITH NO COMPLICATIONS.
--- NOTE | 2023-01-27 10:46 | NUR ---
Received a text from Dr. Smyth. He plans for dc of this pt today. He will be here in approx. 1 hours to complete orders. Let him know, I will leave SNF orders at his dictation desk. Updated GAURAV and confirmed they have a wound vac and an airbed. He confirms both are in house. We discussed orders they will need: 1. Diet, activiet specific for pts toe touch for commode, wound vac orders, Cleaning open fixation device, and rx for pain meds. Left a note for Dr. Smyth to the above.
--- NOTE | 2023-01-27 12:45 | NUR ---
THIS CLINICAL LAB TECHNOLOGIST & ELIZA SHIPLEY ASSISTED PT IN BRIEF CHANGE AFTER INCONT BM. PT ABLE TO TURN SIDE TO SIDE ON HER OWN SLOWLY, SLIGHT PAIN WITH MOVEMENT. SHAYNA CARE PERFORMED, NEW PUREWICK/BRIEF PLACED. PT SET UP FOR LUMCH. CALL LIGHT AND BELONGINGS IN REACH.
[2023-01-27] MEDS ORDERED: IBUPROFEN600 MG PO (13:23)
[2023-01-27] MEDS ORDERED: ACETAMINOPHEN500 MG PO (13:23)
[2023-01-27] MEDS ORDERED: HYDROCODON-ACE1 EA10 PO (13:23)
--- NOTE | 2023-01-27 13:30 | NUR ---
Dr Smyth arrived and orders completed. Faxed orders, PASRR, and RX to GAURAV.
[2023-01-27] MEDS ORDERED: BACTRIM DS TAB1 EACH PO (13:36)
--- NOTE | 2023-01-27 13:45 | NUR ---
In and spoke with Linnette again. She is aware she is leaving at 2 pm per van. She is transfering into the with a walker. She is painful and moves very slowly. Wished her luck.
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
--- NOTE | 2023-01-27 13:59 | NUR ---
REPORT CALLED TO OMAR
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
--- NOTE | 2023-01-27 14:08 | NUR ---
PT. LEFT WITH ALL BELONGINGS VIA WHEELCHAIR WITH AUDITING CLERK. IV X2 REMOVED BY AUDITING CLERK. WOUNDVAC CLAMPED AND APPLIANCE DISCONNECTED TO BE RECONNECTED WITH FACILITY APPLIANCE. VITALS STABLE.
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
--- NOTE | 2023-01-28 23:04 | PATH ---
[facility] [address] [place], [place] [address] Signed THIS IS AN AMENDED REPORT SPECIMEN(S): A SACRUM, PROD. OF DEBRIDEMENT SPECIMEN SOURCE: A. SACRUM, PROD. OF DEBRIDEMENT CLINICAL HISTORY: Products of debridement. Decubitus sacrum. REASON FOR AMENDMENT: This amended report is issued to correct the copy to provider. Originally reported as Unknown Clinician; amended to Jordan Arreola MD. The Pathologic Diagnosis remains unchanged. (01/28/2023) FINAL PATHOLOGIC DIAGNOSIS: Sacrum, products of debridement: - Fragments of necrotic fibroconnective tissue, adipose tissue, and skeletal muscle bundles. - Fat necrosis with acute and chronic inflammation is noted. TWK:em:C2NR MICROSCOPIC EXAMINATION: Histologic sections of all submitted blocks are examined by light microscopy. These findings, together with the gross examination, support the pathologic diagnosis. GROSS DESCRIPTION: The specimen, labeled and designated "Alexey Sheth, " and designated on the requisition "products of debridement sacrum," is received in formalin and consists of 17.5 x 11.6 x 5.8 cm aggregate of gill-johnson possible skeletal muscle with attached yellow-johnson fibroadipose tissue and gill-black portions of skin. Sectioning reveals focal areas of yellow chalky adipose tissue and gill-green softened tissue. Office Manager Receptionist sections are submitted in (A1). FB (under the direct supervision of a pathologist) The Gross Description was prepared using a voice recognition system. The report was reviewed for accuracy; however, sound-alike word errors, addition and/or deletions may occur. If there is any question about this report, please contact Client Services. PATIENT NAME: MILLER SHETH PATHOLOGY DATE OF : 73 REPORT #: [id number] PHYSICIAN: ADAM PATHOLOGY PCP: OTHER PCP REPORT IS CONFIDENTIAL AND NOT TO BE RELEASED WITHOUT AUTHORIZATION [facility] [address] [place], [place] [address] Signed PERFORMING LABORATORY: The technical component was performed by [employer], [address] [place] [id number] (CLIA# [id number]). The professional interpretation was performed by [facility], [facility], [facility] [address] [address] (CLIA#: [id number]). Diagnostician: Wilfredo Rodriguez MD Pathologist Electronically Signed 01/28/2023 Copies: ~ PATIENT NAME: MILLER SHETH PATHOLOGY DATE OF : 73 REPORT #: [id number] PHYSICIAN: ADAM PATHOLOGY PCP: OTHER PCP REPORT IS CONFIDENTIAL AND NOT TO BE RELEASED WITHOUT AUTHORIZATION
== END 2023-01-27 14:00 | DRG 571 ==
LOC: ED 14:32 → MS 17:05
PROVIDERS: ADMIT Surgery; ATTEND Surgery
PROC: 0Y910ZZ Drainage of Left Buttock, Open Approach (ICD-10-PCS; 2023-01-21)
PROC: 0Y900ZZ Drainage of Right Buttock, Open Approach (ICD-10-PCS; 2023-01-21)
PROC: 0JB70ZZ Excision of Back Subcutaneous Tissue and Fascia, Open Approach (ICD-10-PCS; principal; 2023-01-21 13:15)
PROC: 0JB70ZZ Excision of Back Subcutaneous Tissue and Fascia, Open Approach (ICD-10-PCS; 2023-01-25)
PROC: 0JB90ZZ Excision of Buttock Subcutaneous Tissue and Fascia, Open Approach (ICD-10-PCS; 2023-01-25)
PROC: 30233N1 Transfusion of Nonautologous Red Blood Cells into Peripheral Vein, Percutaneous Approach (ICD-10-PCS; 2023-01-26)
DX: L89.154 Pressure ulcer of sacral region, stage 4 (principal); M46.28 Osteomyelitis of vertebra, sacral and sacrococcygeal region; L89.323 Pressure ulcer of left buttock, stage 3; D64.9 Anemia, unspecified; Z20.822 Contact with and (suspected) exposure to COVID-19; Z88.0 Allergy status to penicillin; S27.0XXD Traumatic pneumothorax, subsequent encounter; S32.048D Other fracture of fourth lumbar vertebra, subsequent encounter for fracture with routine healing; S32.058D Other fracture of fifth lumbar vertebra, subsequent encounter for fracture with routine healing; V89.2XXD Person injured in unspecified motor-vehicle accident, traffic, subsequent encounter
CPT/HCPCS: 00300; 36415; 72220; 80048; 80053; 83605; 84134; 85025; 86850; 86900; 86901; 86922; 87040; 87070; 87075; 87205; 88304; 96374; 96375; 99284-25; A9270; C9803; J0690; J1100; J1170; J1644; J1885; J2001; J2250; J2405; J2543; J2704; J3010; J7040; J7121; P9016; U0003

== ENCOUNTER 2023-01-30 18:42 | Emergency (ER) | payer OTHER ==
[~2023-01-30] VITALS: Ht 160 cm; Wt 74.4 kg
[~2023-01-30 18:42] MED LIST: ACETAMINOPHEN500 MG PO; BACTRIM DS TAB1 EACH PO; HYDROCODON-ACE1 EA10 PO; IBU800 MG PO; IBUPROFEN600 MG PO; MULTI VITAMIN1 EACH PO; TYLENOL325 MG PO; VITAMIN D325 MCG PO
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
[2023-01-30] MEDS ORDERED: BACTRIM DS TAB1 EACH PO (20:14)
[2023-01-30 22:02] VITALS: BP 118/80
== END 2023-01-30 22:02 | disposition home or self-care (01) ==
LOC: ED 18:42
DX: L89.314 Pressure ulcer of right buttock, stage 4 (principal); Z88.0 Allergy status to penicillin; Z79.899 Other long term (current) drug therapy
CPT/HCPCS: 96372; 99283; A9270; J2270